=== PATIENT | male | born 1950 | race Caucasian/White ===

== ENCOUNTER 2016-10-17 20:48 | Emergency (ER) | payer MEDICARE, BC ==
[~2016-10-17] VITALS: Ht 175.3 cm; Wt 79.5 kg
[2016-10-17 20:50] VITALS: BP 101/77; TEMP 96.5
[2016-10-17] MEDS ORDERED: TOPROL XL 25MG25 MG PO (21:06)
[2016-10-17] MEDS ORDERED: ZOCOR 10MG10 MG PO (21:06)
[2016-10-17] MEDS ORDERED: MONOPRIL HCT 101 TAB PO (21:07)
[2016-10-17 21:26] LABS: BASO # 0.1 (0.0-0.2); BASO % 0.4 % (0.0-2.0); EOS % 0.1 % (0-4.0); GRAN # 14.5 (1.4-6.5); HEMATOCRIT 42.2 % (42.0-52.0); HEMOGLOBIN 14.6 g/dl (13.5-18.0); LYMPH # 0.9 (1.2-3.4); LYMPH % 5.1 % (20.0-51.0); MEAN CELL VOLUME 92 fl (80.0-100.0); MEAN CORPUSCULAR HEMOGLOBIN 32 pg (27.0-31.0); MEAN CORPUSCULAR HGB CONC 35 g/dl (33.0-37.0); MEAN PLATELET VOLUME 12.4 fl (7.4-10.4); MONO # 1.3 (0.1-0.6); PLATELET COUNT 139 K/mm3 (130-400); RED BLOOD COUNT 4.61 M/mm3 (4.20-5.60); WHITE BLOOD COUNT 16.8 K/mm3 (4.8-10.8)
[2016-10-17 21:42] LABS: ADJUSTED CALCIUM 9.5 mg/dL (8.4-10.2); ALBUMIN 4.4 gm/dL (3.5-5.0); BILIRUBIN,TOTAL 1.3 mg/dL (0.0-1.0); C-REACTIVE PROTEIN 4.6 mg/dL (0.0-0.9); CALCIUM 9.8 mg/dL (8.4-10.2); CREATININE, serum 0.78 mg/dL (0.66-1.25); POTASSIUM 4.3 mmol/L (3.4-5.0); TOTAL PROTEIN 7.6 gm/dL (6.4-8.2)
[2016-10-17 22:29] LABS: PH 5 (5-8); SQUAMOUS EPITHELIAL 0-2 /hpf; URINE APPEARANCE Hazy; URINE BACTERIA None Seen /hpf; URINE BILIRUBIN Negative (NEGATIVE); URINE BLOOD Negative (NEGATIVE); URINE COLOR Amber; URINE GLUCOSE 1+ (NEGATIVE); URINE KETONE Trace (NEGATIVE)
[2016-10-17 22:31] LABS: URINE RBC 0-2 /hpf
[2016-10-17 22:43] VITALS: PULSE 92
[2016-10-21] MEDS ORDERED: ASPIRIN 32325 MG/TAB PO (13:47)
[2016-10-21] MEDS ORDERED: NORCO 325 MG-7.1 TAB PO (13:47)
[2016-10-21] MEDS ORDERED: ROXICODONE 55 MG/TAB PO (13:48)
[2016-10-21] MEDS ORDERED: IRON325 MG PO (13:48)
[2016-10-21] MEDS ORDERED: FOLIC ACID0.8 MG PO (13:48)
[2016-10-21] MEDS ORDERED: ROCEPHIN 2GM VIAL21 IJ (13:49)
== END 2016-10-17 22:44 | disposition home or self-care (01) ==
LOC: COL.ER 20:48
PROVIDERS: Emergency Medicine
DX: M25.562 Pain in left knee (principal); M25.462 Effusion, left knee; D72.829 Elevated white blood cell count, unspecified; I10 Essential (primary) hypertension; Z96.651 Presence of right artificial knee joint
CPT/HCPCS: J1885; J7512

== ENCOUNTER → 2016-10-19 | Outpatient (CLI) | payer MEDICARE ==
[~2016-10-19] MED LIST: ASPIRIN 32325 MG/TAB PO; FOLIC ACID0.8 MG PO; IRON325 MG PO; MONOPRIL HCT 101 TAB PO; NORCO 325 MG-7.1 TAB PO; ROCEPHIN 2GM VIAL21 IJ; ROXICODONE 55 MG/TAB PO; TOPROL XL 25MG25 MG PO; ZOCOR 10MG10 MG PO
[2016-10-19 10:09] LABS: BASO # 0.1 (0.0-0.2); BASO % 0.6 % (0.0-2.0); EOS # 0.1 (0.0-0.7); EOS % 0.7 % (0-4.0); GRAN # 7.2 (1.4-6.5); GRAN % 79.6 % (42.2-75.2); LYMPH # 0.7 (1.2-3.4); LYMPH % 7.8 % (20.0-51.0); MEAN CELL VOLUME 94 fl (80.0-100.0); MEAN CORPUSCULAR HGB CONC 34 g/dl (33.0-37.0); MEAN PLATELET VOLUME 10.7 fl (7.4-10.4); MONO % 10.9 % (1.7-9.3); PLATELET COUNT 186 K/mm3 (130-400); RED BLOOD COUNT 3.94 M/mm3 (4.20-5.60); REDCELL DISTRIBUTION WIDTH-CV 13.1 % (11.5-14.5)
[2016-10-19 10:15] LABS: HEMATOCRIT 36.9 % (42.0-52.0); HEMOGLOBIN 12.4 g/dl (13.5-18.0); MEAN CORPUSCULAR HEMOGLOBIN 31 pg (27.0-31.0)
[2016-10-19 11:52] LABS: ERYTHROCYTE SEDIMENTATION RATE 19 mm/hr (0-30)
== END ==
LOC: ZMSC 09:56 → EUO 12:00 → ZMSC 12:00 → EDSTATUS 10-21 12:00 → EUO 10-21 12:00
PROVIDERS: Orthopaedic Surgery
DX: Z01.89 Encounter for other specified special examinations (principal)

== ENCOUNTER 2016-11-18 11:00 | Outpatient (RCR) | payer MEDICARE, BC ==
[2016-10-21 14:17] LABS: ADJUSTED CALCIUM 9.3 mg/dL (8.4-10.2); ALBUMIN 3.9 gm/dL (3.5-5.0); BILIRUBIN,TOTAL 0.7 mg/dL (0.0-1.0); CALCIUM 9.2 mg/dL (8.4-10.2); CREATININE, serum 0.65 mg/dL (0.66-1.25); POTASSIUM 3.9 mmol/L (3.4-5.0); TOTAL PROTEIN 6.9 gm/dL (6.4-8.2)
[2016-10-21 14:22] LABS: BASO # 0.1 (0.0-0.2); BASO % 0.6 % (0.0-2.0); EOS # 0.2 (0.0-0.7); GRAN # 7.9 (1.4-6.5); GRAN % 75.5 % (42.2-75.2); HEMATOCRIT 38.8 % (42.0-52.0); HEMOGLOBIN 13.2 g/dl (13.5-18.0); LYMPH % 9.5 % (20.0-51.0); MEAN CELL VOLUME 93 fl (80.0-100.0); MEAN CORPUSCULAR HEMOGLOBIN 32 pg (27.0-31.0); MEAN CORPUSCULAR HGB CONC 34 g/dl (33.0-37.0); MEAN PLATELET VOLUME 9.8 fl (7.4-10.4); MONO # 1.3 (0.1-0.6); RED BLOOD COUNT 4.18 M/mm3 (4.20-5.60); REDCELL DISTRIBUTION WIDTH-CV 12.7 % (11.5-14.5); WHITE BLOOD COUNT 10.5 K/mm3 (4.8-10.8)
[2016-10-21 14:23] LABS: PLATELET COUNT 290 K/mm3 (130-400)
[2016-10-21 14:42] LABS: ERYTHROCYTE SEDIMENTATION RATE 34 mm/hr (0-30)
[2016-10-22 11:07] VITALS: BP 112/66; PULSE 89; TEMP 97.6
[2016-10-23 07:43] VITALS: BP 145/72; PULSE 91; TEMP 97.5
[2016-10-24 08:52] VITALS: BP 121/78; PULSE 94; TEMP 97.8
[2016-10-25 11:13] VITALS: BP 97/62; PULSE 94; TEMP 98.2
[2016-10-25 12:01] LABS: SYPHILIS AB IGG Negative (Negative)
[2016-10-26 11:02] VITALS: BP 115/57; PULSE 85; TEMP 97.7
[2016-10-28 10:56] VITALS: BP 116/53; PULSE 78; TEMP 98
[2016-10-29 10:51] VITALS: BP 121/72; PULSE 80; TEMP 98.6
[2016-10-30 08:10] VITALS: BP 109/63; PULSE 74; TEMP 98
[2016-10-31 08:09] VITALS: BP 118/63; PULSE 71; TEMP 98.4
[2016-11-01 11:06] VITALS: BP 101/57; PULSE 78; TEMP 98.7
[2016-11-02 09:58] VITALS: BP 118/80; PULSE 82; TEMP 98.7
[2016-11-02 11:48] LABS: HEMATOCRIT 43.3 % (42.0-52.0); HEMOGLOBIN 14.4 g/dl (13.5-18.0); MEAN CELL VOLUME 94 fl (80.0-100.0); MEAN CORPUSCULAR HEMOGLOBIN 31 pg (27.0-31.0); MEAN CORPUSCULAR HGB CONC 33 g/dl (33.0-37.0); MEAN PLATELET VOLUME 9.2 fl (7.4-10.4); PLATELET COUNT 406 K/mm3 (130-400); REDCELL DISTRIBUTION WIDTH-CV 12.4 % (11.5-14.5)
[2016-11-02 12:11] LABS: ERYTHROCYTE SEDIMENTATION RATE 12 mm/hr (0-30)
[2016-11-03 10:53] VITALS: BP 107/65; PULSE 85; TEMP 97.9
[2016-11-04 11:00] VITALS: BP 106/73; PULSE 90; TEMP 98.5
[2016-11-05 11:04] VITALS: BP 112/71; PULSE 77; TEMP 98.4
[2016-11-06 10:51] VITALS: BP 112/64; PULSE 74; TEMP 98
[2016-11-07 10:09] VITALS: BP 123/77; PULSE 81; TEMP 98.3
[2016-11-08 10:52] VITALS: BP 116/69; PULSE 78; TEMP 98.2
[2016-11-09 10:58] VITALS: BP 127/68; PULSE 82; TEMP 97.3
[2016-11-09 12:00] LABS: BASO # 0.1 (0.0-0.2); BASO % 0.9 % (0.0-2.0); EOS # 0.3 (0.0-0.7); EOS % 4.6 % (0-4.0); GRAN # 3.9 (1.4-6.5); GRAN % 67.2 % (42.2-75.2); HEMATOCRIT 38.7 % (42.0-52.0); LYMPH % 17.7 % (20.0-51.0); MEAN CELL VOLUME 93 fl (80.0-100.0); MEAN CORPUSCULAR HEMOGLOBIN 31 pg (27.0-31.0); MEAN CORPUSCULAR HGB CONC 34 g/dl (33.0-37.0); MEAN PLATELET VOLUME 9.4 fl (7.4-10.4); MONO # 0.5 (0.1-0.6); MONO % 9.3 % (1.7-9.3); PLATELET COUNT 297 K/mm3 (130-400); RED BLOOD COUNT 4.15 M/mm3 (4.20-5.60); REDCELL DISTRIBUTION WIDTH-CV 12.3 % (11.5-14.5); WHITE BLOOD COUNT 5.8 K/mm3 (4.8-10.8)
[2016-11-09 12:07] LABS: ADJUSTED CALCIUM 9.5 mg/dL (8.4-10.2); ALBUMIN 3.8 gm/dL (3.5-5.0); BILIRUBIN,TOTAL 0.6 mg/dL (0.0-1.0); CALCIUM 9.3 mg/dL (8.4-10.2); CREATININE, serum 0.69 mg/dL (0.66-1.25); POTASSIUM 3.8 mmol/L (3.4-5.0); TOTAL PROTEIN 6.8 gm/dL (6.4-8.2)
[2016-11-10 10:53] VITALS: BP 127/71; PULSE 76; TEMP 97.8
[2016-11-11 11:58] VITALS: BP 115/74; PULSE 74; TEMP 98.7
[2016-11-12 10:48] VITALS: BP 110/83; PULSE 74; TEMP 97.9
[2016-11-13 08:22] VITALS: BP 120/66; PULSE 71; TEMP 98.1
[2016-11-14 08:15] VITALS: BP 113/64; PULSE 70; TEMP 98.1
[2016-11-15 11:00] VITALS: BP 109/75; PULSE 75; TEMP 98.2
[2016-11-15 11:22] LABS: BASO # 0.1 (0.0-0.2); BASO % 0.8 % (0.0-2.0); EOS # 0.3 (0.0-0.7); EOS % 4.1 % (0-4.0); GRAN # 5.6 (1.4-6.5); GRAN % 71.4 % (42.2-75.2); HEMATOCRIT 40.5 % (42.0-52.0); HEMOGLOBIN 13.6 g/dl (13.5-18.0); LYMPH # 1.2 (1.2-3.4); LYMPH % 14.8 % (20.0-51.0); MEAN CELL VOLUME 93 fl (80.0-100.0); MEAN CORPUSCULAR HEMOGLOBIN 31 pg (27.0-31.0); MEAN CORPUSCULAR HGB CONC 34 g/dl (33.0-37.0); MEAN PLATELET VOLUME 9.5 fl (7.4-10.4); MONO # 0.7 (0.1-0.6); MONO % 8.3 % (1.7-9.3); PLATELET COUNT 225 K/mm3 (130-400); RED BLOOD COUNT 4.38 M/mm3 (4.20-5.60); REDCELL DISTRIBUTION WIDTH-CV 12.4 % (11.5-14.5); WHITE BLOOD COUNT 7.8 K/mm3 (4.8-10.8)
[2016-11-15 11:37] LABS: ADJUSTED CALCIUM 9.2 mg/dL (8.4-10.2); ALBUMIN 4.2 gm/dL (3.5-5.0); BILIRUBIN,TOTAL 0.7 mg/dL (0.0-1.0); CALCIUM 9.4 mg/dL (8.4-10.2); CREATININE, serum 0.66 mg/dL (0.66-1.25)
[2016-11-15 14:14] LABS: ERYTHROCYTE SEDIMENTATION RATE 8 mm/hr (0-30)
[2016-11-16 11:10] VITALS: BP 114/68; PULSE 75; TEMP 98.3
[2016-11-17 10:43] VITALS: BP 112/72; PULSE 71; TEMP 98.2
[~2016-11-18] VITALS: Ht 175.3 cm; Wt 81.0 kg
[2016-11-18 11:24] VITALS: BP 105/68; PULSE 7; TEMP 98.2
[2016-11-19 14:25] VITALS: BP 106/70; PULSE 97; TEMP 97.9
== END 2016-11-19 14:25 | disposition home or self-care (01) ==
LOC: EUO 11:00
PROVIDERS: Internal Medicine Infectious Disease; Orthopaedic Surgery
DX: Z79.2 Long term (current) use of antibiotics (principal)
CPT/HCPCS: 86780; C1751; J0696; J1644

== ENCOUNTER → 2017-01-11 | Outpatient (CLI) | payer MEDICARE, BC ==
[2017-01-11 11:08] LABS: HEMATOCRIT 42.6 % (42.0-52.0); HEMOGLOBIN 14.7 g/dl (13.5-18.0); MEAN CELL VOLUME 90 fl (80.0-100.0); MEAN CORPUSCULAR HEMOGLOBIN 31 pg (27.0-31.0); MEAN CORPUSCULAR HGB CONC 35 g/dl (33.0-37.0); MEAN PLATELET VOLUME 9.6 fl (7.4-10.4); PLATELET COUNT 239 K/mm3 (130-400); RED BLOOD COUNT 4.73 M/mm3 (4.20-5.60); REDCELL DISTRIBUTION WIDTH-CV 13.1 % (11.5-14.5); WHITE BLOOD COUNT 6.8 K/mm3 (4.8-10.8)
[2017-01-11 11:38] LABS: ERYTHROCYTE SEDIMENTATION RATE 1 mm/hr (0-30)
== END ==
LOC: COL.LAB 10:06
PROVIDERS: Orthopaedic Surgery
DX: M25.562 Pain in left knee (principal); M79.89 Other specified soft tissue disorders

== ENCOUNTER → 2017-02-09 | Outpatient (CLI) | payer MEDICARE, BC ==
[2017-02-09 17:02] LABS: SYNOVIAL FL. MONONUCLEAR 86.9 % (0-75); SYNOVIAL FL. POLYMORPHONUCLEAR 13.1 % (0-25); SYNOVIAL FLUID WBC 274 /mm3 (200-600)
[2017-02-09 17:06] LABS: SYNOVIAL FLUID APPEARANCE HAZY; SYNOVIAL FLUID COLOR YELLOW
== END ==
LOC: ZCOL.LAB 15:10
PROVIDERS: Orthopaedic Surgery
DX: Z02.89 Encounter for other administrative examinations (principal)

== ENCOUNTER → 2017-10-27 | Outpatient (CLI) | payer MEDICARE, BC ==
[~2017-10-27] VITALS: Ht 175.3 cm; Wt 87.0 kg
[2017-10-27 13:41] VITALS: BP 145/95; PULSE 89
[2017-10-27 15:15] VITALS: BP 147/89; PULSE 94
== END ==
LOC: COL.RAD 13:30
DX: M54.12 Radiculopathy, cervical region (principal)
CPT/HCPCS: J1100